=== PATIENT | male | born 1985 | race Caucasian/White ===

== ENCOUNTER 2017-07-18 23:30 | Emergency (ER) ==
[2017-07-18] MEDS ORDERED: ATIVAN IM STA (23:47)
[2017-07-18 23:57] VITALS: BP 143/102; TEMP 99.1; BMI 30.1
[2017-07-19] MEDS ORDERED: LOPRESSOR PO STA (01:23)
--- NOTE | 2017-07-19 01:27 | ED.PDOC ---
General ED Provider: Dr. BARB RADFORD-ER Chief Complaint: Non-specific Complaint Stated Complaint: my heart was racing-- Time Seen by Physician: 23:35 Mode of Arrival: Walk-In Information Source: Patient Exam Limitations: No limitations Nursing and Triage Documentation Reviewed and Agree: Yes Reviewed sepsis parameters & appropriate labs ordered?: Yes System Inflammatory Response Syndrome: Not Applicable Sepsis Protocol: For patient's 13 years and over: Temp is 96.8 and below OR 101 and greater Pulse >90 BPM Resp >20/minute Acutely Altered Mental Status Are patient's symptoms suggestive of a new infection, such as: -Pneumonia -Skin, Soft Tissue -Endocarditis -UTI -Bone, Joint Infection -Implantable Device -Acute Abdominal Infection -Wound Infection -Meningitis -Blood Stream Catheter Infection -Unknown Cardiovascular Complaint Exam - Palpitations Complaint/Exam Onset/Duration: tonight Symptoms Are: Still present Timing: Constant Initial Severity: Mild Current Severity: Moderate Character: Reports: Fast, Pounding Aggravating: Reports: None Alleviating: Reports: None Associated Signs and Symptoms: Denies: Lightheadedness, Dizziness, Syncope, Chest pain, Shortness of breath, Diaphoresis, Nausea, Vomiting Thyroid Exam: Normal Differential Diagnoses: Panic Disorder, Paroxysmal SVT Quality Indicator For Non-Traumatic Chest Pain/Syncope: EKG Performed Review of Systems - Review Of Systems Constitutional: Reports: No symptoms Eyes: Reports: No symptoms Ears, Nose, Mouth, Throat: Reports: No symptoms Respiratory: Reports: No symptoms Cardiac: Reports: Palpitations GI: Reports: No symptoms : Reports: No symptoms Musculoskeletal: Reports: No symptoms Skin: Reports: No symptoms Neurological: Reports: No symptoms Endocrine: Reports: No symptoms Hematologic/Lymphatic: Reports: No symptoms All Other Systems: Reviewed and Negative Past Medical History - Past Medical History Previously Healthy: Yes Endocrine: Reports: Unknown Cardiovascular: Reports: Unknown Respiratory: Reports: Other Hematological: Reports: None Gastrointestinal: Reports: None Genitourinary: Reports: None Neuro/Psych: Reports: Anxiety, Depression Musculoskeletal: Reports: None Cancer: Reports: None - Surgical History General Surgical History: Reports: Unknown - Family History Family History: Reports: Unknown - Social History Smoking Status: Former smoker Hx Substance Use: No Alcohol Screening: Heavy - Immunizations Tetanus Shot up to Date: Yes Physical Exam - Physical Exam Appearance: Well-appearing, No pain distress, Well-nourished Eyes: ANDRZEJ ENT: Ears normal, Nose normal, Oropharynx normal Neck: Supple Respiratory: Airway patent, Breath sounds clear, Breath sounds equal, Respirations nonlabored Cardiovascular: RRR, No rub, No murmur, Tachycardia GI/: Soft, Nontender, No masses, Bowel sounds normal, No Organomegaly Musculoskeletal: Normal strength Skin: Warm Neurological: Sensation intact, Motor intact, Reflexes intact, Cranial nerves intact, Alert, Oriented Psychiatric: Affect appropriate, Mood appropriate, Anxious Re-Evaluation - Re-Evaluation Time of Re-Evaluation: 01:27 Status: Improved Vital Signs Stable: Yes Pain Level: 0 Appearance: NAD Lungs: Clear Skin: Warm and Dry Neuro: Alert and Oriented X3 CV: RRR Critical Care Note - Critical Care Note Total Time (mins): 0 Course - Course Hematology/Chemistry: 07/19/17 00:03 07/19/17 00:03 Orders, Labs, Meds: Lab Review 07/19/17 07/19/17 07/19/17 00:01 00:01 00:03 WBC 6.58 RBC 4.02 L Hgb 13.3 L Hct 37.0 L MCV 92.0 MCH 33.1 H MCHC 35.9 H RDW Coeff of Theodora 11.9 Plt Count 248 Immature Gran % (Auto) 0.6 Neut % (Auto) 57.3 Lymph % (Auto) 31.2 Villalba % (Auto) 8.7 Eos % (Auto) 1.1 Baso % (Auto) 1.1 Immature Gran # (Auto) 0.0 Neut # (Auto) 3.8 Lymph # (Auto) 2.1 Villalba # (Auto) 0.6 Eos # (Auto) 0.1 Baso # (Auto) 0.1 Sodium Potassium Chloride Carbon Dioxide Anion Gap BUN Creatinine Estimated GFR (MDRD) BUN/Creatinine Ratio Glucose Calcium Total Bilirubin AST ALT Alkaline Phosphatase Total Creatine Kinase Troponin I Total Protein Albumin Globulin Albumin/Globulin Ratio TSH Free T4 Urine Color Yellow Urine Clarity Clear Urine pH 7.0 Ur Specific Winfred 1.025 Urine Protein Negative Urine Glucose (UA) Negative Urine Ketones Negative Urine Blood Negative Urine Nitrite Negative Urine Bilirubin Negative Urine Urobilinogen 0.2 Ur Leukocyte Esterase Negative Urine Opiates Screen Negative Ur Oxycodone Screen Negative Urine Methadone Screen Negative Ur Propoxyphene Screen Negative Ur Barbiturates Screen Negative U Tricyclic Antidepress Negative Ur Phencyclidine Scrn Negative Ur Amphetamine Screen Negative U Methamphetamines Scrn Negative U Benzodiazepines Scrn Negative Urine Cocaine Screen Negative U Cannabinoids Screen Positive 07/19/17 07/19/17 00:03 00:03 WBC RBC Hgb Hct MCV MCH MCHC RDW Coeff of Theodora Plt Count Immature Gran % (Auto) Neut % (Auto) Lymph % (Auto) Villalba % (Auto) Eos % (Auto) Baso % (Auto) Immature Gran # (Auto) Neut # (Auto) Lymph # (Auto) Villalba # (Auto) Eos # (Auto) Baso # (Auto) Sodium 137 Potassium 3.7 Chloride 103 Carbon Dioxide 23 Anion Gap 14.7 BUN 15 Creatinine 0.96 Estimated GFR (MDRD) 92.00 BUN/Creatinine Ratio 15.62 Glucose 107 H Calcium 8.8 Total Bilirubin 0.3 AST 34 ALT 42 Alkaline Phosphatase 65 Total Creatine Kinase 71 Troponin I < 0.0100 Total Protein 6.8 Albumin 3.5 Globulin 3.3 Albumin/Globulin Ratio 1.06 TSH 1.358 Free T4 0.73 Urine Color Urine Clarity Urine pH Ur Specific Winfred Urine Protein Urine Glucose (UA) Urine Ketones Urine Blood Urine Nitrite Urine Bilirubin Urine Urobilinogen Ur Leukocyte Esterase Urine Opiates Screen Ur Oxycodone Screen Urine Methadone Screen Ur Propoxyphene Screen Ur Barbiturates Screen U Tricyclic Antidepress Ur Phencyclidine Scrn Ur Amphetamine Screen U Methamphetamines Scrn U Benzodiazepines Scrn Urine Cocaine Screen U Cannabinoids Screen Orders Category Date Time Status EKG-(ED ONLY) Stat CARDIO 07/18/17 23:46 Ordered Pay Per Click Strategist [[facility] AP[employer]] .ONCE EMERGENCY 07/18/17 23:46 Active CBC W/ AUTO DIFF Stat LAB 07/18/17 23:46 Completed COMPREHENSIVE METABOLIC PANEL Stat LAB 07/18/17 23:46 Completed CREATINE KINASE Stat LAB 07/18/17 23:47 Completed FREE T4 (FREE THYROXINE) Stat LAB 07/18/17 23:46 Completed THYROID STIMULATING HORMONE Stat LAB 07/18/17 23:46 Completed TROPONIN I Stat LAB 07/18/17 23:47 Completed URINALYSIS C & S IF INDICATED Stat LAB 07/19/17 00:01 Completed URINE DRUG SCREEN (RAPID FOR ED) [DRUG SCREEN, URINE, LAB 07/19/17 00:01 Completed RAPID] Stat Lorazepam [Ativan] MEDS 07/18/17 23:47 Discontinued 1 mg IM ONCE STA Metoprolol Tartrate [Lopressor] MEDS 07/19/17 01:23 Stat 25 mg PO ONCE STA Medications Generic Name Dose Route Start Last Admin Trade Name Priya PRN Reason Stop Dose Admin Metoprolol Tartrate 25 mg 07/19/17 01:23 Lopressor PO 07/19/17 01:24 ONCE STA Discontinued Medications Generic Name Dose Route Start Last Admin Trade Name Priya PRN Reason Stop Dose Admin Lorazepam 1 mg 07/18/17 23:47 07/19/17 00:13 Ativan IM 07/18/17 23:48 1 mg ONCE STA Administration Vital Signs: Temp Pulse Resp BP Pulse Ox 07/18/17 23:31 99.1 F 125 H 22 143/102 H 98 KRUNAL Risk Score KRUNAL Risk Score: Risk Score Odds of by 30D 0 0.1 (0.1-0.2) 1 0.3 (0.2-0.3) 2 0.4 (0.3-0.5) 3 0.7 (0.6-0.9) 4 1.2 (1.0-1.5) 5 2.2 (1.9-2.6) 6 3.0 (2.5-3.6) 7 4.8 (3.8-6.1) Departure - Departure Time of Disposition: 01:27 Disposition: HOME SELF-CARE Discharge Problem: Tachycardia, Anxiety Anemia Qualifiers: Anemia type: unspecified type Qualified Code(s): D64.9 - Anemia, unspecified Condition: Good Pt referred to PMD for follow-up: Yes IPMP verified?: No Additional Instructions: lopressor 25mg bid #60,2rf--talk to your pcp back home in [facility] about your anemia--will will need more testing Allergies/Adverse Reactions: Allergies No Known Allergies Allergy (Unverified 07/19/17 00:15) Home Medications: Ambulatory Orders Lisinopril 20 mg PO DAILY 07/19/17 Venlafaxine HCl [Effexor Xr] 75 mg PO DAILY 07/19/17 Venlafaxine HCl [Effexor Xr] 150 mg PO DAILY 07/19/17 Disposition Discussed With: Patient
== END 2017-07-19 01:45 | disposition home or self-care (01) ==
LOC: ED 23:30
DX: R00.0 Tachycardia, unspecified (principal); F41.9 Anxiety disorder, unspecified; D64.9 Anemia, unspecified
CPT/HCPCS: 36415; 80053; 80306; 81001; 82550; 84439; 84443; 84484; 85025; 93005; 93010; 96372; 99283